=== PATIENT | female | born 1975 | race Caucasian/White ===

== ENCOUNTER 2019-12-23 00:02 | Emergency (ER) | payer SELFPAY ==
[~2019-12-23] VITALS: Ht 167.6 cm; Wt 58.0 kg
[2019-12-23] MEDS ORDERED: IBUPROFEN 600MG TABLET PO ONE (00:30)
[2019-12-23 10:42] VITALS: BP 102/64
== END 2019-12-23 13:50 | disposition home or self-care (01) ==
LOC: ER 00:02
DX: S93.402A Sprain of unspecified ligament of left ankle, initial encounter (principal); W01.0XXA Fall on same level from slipping, tripping and stumbling without subsequent striking against object, initial encounter; Y93.89 Activity, other specified; Y92.89 Other specified places as the place of occurrence of the external cause; Y99.8 Other external cause status
CPT/HCPCS: 73610; 99283